=== PATIENT | female | born 1975 | race African-American/Black ===

== ENCOUNTER 2024-02-18 08:49 | Emergency (ER) | payer OTHER, SELFPAY ==
[2024-02-18] MEDS ORDERED: Losartan 25 MG TAB ONE (09:23)
[2024-02-18] MEDS ORDERED: Amlodipine 5 MG TAB ONE (09:24)
[2024-02-18 10:09] LABS: Bilirubin Neg (Negative); Blood, Urine 10 (Negative); Clarity Clear (Clear); Glucose, Urine (Dipstick) Normal (Negative); Ketone, Urine Negative (Negative); Leukocyte Negative (Negative); Nitrite Negative (Negative); Protein, Urine (Dipstick) Negative (Neg-Trace); Urobilinogen Normal mg/dL (Less than 2)
[2024-02-18 10:20] LABS: Bacteria/HPF Rare-Few HPF (None Seen); CAUTI Indications for Culture Dysuria,urgency,freq; Squamous Epithelial 21-50 HPF (0-3)
[2024-02-18 10:21] LABS: Urine Culture Reflex No No
[2024-02-18] MEDS ORDERED: Sterile Water 10 ML ONE (11:13)
[2024-02-18] MEDS ORDERED: cefTRIAXone (ROCEPHIN) 500 MG VIAL ONE (11:13)
[2024-02-18] MEDS ORDERED: Doxycycline 100 MG CAP PO SCH (11:30)
[2024-02-18] MEDS ORDERED: Fluconazole 100 MG TAB PO SCH (11:30)
[2024-02-18 18:02] LABS: Chlam.trachomatis by PCR,Urine Not Detected (NotDetected); GC N.gonorrhoeae PCR,UrineVOID Not Detected (NotDetected)
== END 2024-02-18 11:52 | disposition home or self-care (01) ==
LOC: CSHERS 08:49
DX: N89.8 Other specified noninflammatory disorders of vagina (principal); I10 Essential (primary) hypertension; F17.210 Nicotine dependence, cigarettes, uncomplicated
CPT/HCPCS: 81001; 87480; 87491; 87510; 87591; 87660; 96372; 99283; J0696

== ENCOUNTER 2024-10-15 13:55 | Emergency (ER) | payer OTHER ==
[~2024-10-15 13:55] MED LIST: Iopamidol 300 61% 100 ML VIAL FS ONE
[2024-10-15] MEDS ORDERED: Ketorolac Tromethamine 30 MG (1 mL) VIAL ONE (14:39)
[2024-10-15 14:42] LABS: #Basophils 0.06 10x3/uL (0.0-0.2); #Eosinophils 0.25 10x3/uL (0.0-0.5); #Monocytes 1.01 10x3/uL (0.0-1.1); #Neutrophils 12.10 10x3/uL (1.5-8.4); %Basophils 0.4 % (0.0-2.0); %Eosinophils 1.5 % (0.0-6.0); %Lymphocytes 18.8 % (18.0-47.0); %Monocytes 6.1 % (0.0-10.0); %Neutrophils 72.7 % (40.0-75.0); Hematocrit 39.6 % (34.9-44.5); Hemoglobin 13.0 g/dL (12.0-15.5); Mean Corpuscular Hemoglobin 25.0 pg (27.0-33.0); Mean Corpuscular Volume 76.2 fL (81.6-98.3); Platelet Count 281 10x3/uL (150-450); Red Blood Cell (RBC) Count 5.20 10x6/uL (3.90-5.03); White Blood Cell (WBC) Count 16.63 10x3/uL (3.5-10.5)
[2024-10-15 15:03] LABS: BHCG - Serum Negative (NEGATIVE); Pregs Control Background? CLEAR/WHITE (CLR/WHITE); Pregs Control Bar Appear? YES (CONTROL BAR)
[2024-10-15 15:10] LABS: ALT (SGPT) 13 U/L (Less than 34); AST (SGOT) 25 U/L (11-34); Albumin 4.0 g/dL (3.1-4.5); Alkaline Phosphatase 81 U/L (40-110); Anion Gap 13 mmol/L (10-20); BUN (Urea Nitrogen) 11 mg/dL (7.0-18.7); Bilirubin, Total 0.3 mg/dL (0.3-1.2); Calc. Creatinine Clearance 0 mL/min (70-130); Calcium 9.4 mg/dL (7.8-10.44); Carbon Dioxide 26 mmol/L (22-29); Chloride 106 mmol/L (98-107); Globulin 4.2 g/dL (2.4-3.5); Glucose 88 mg/dL (70-105); Potassium 3.8 mmol/L (3.5-5.1); Sodium 141 mmol/L (136-145)
[2024-10-15] MEDS ORDERED: Dexamethasone 10 MG/ML VIAL ONE (15:34)
== END 2024-10-15 17:30 | disposition home or self-care (01) ==
LOC: CSHERS 13:55
DX: R22.1 Localized swelling, mass and lump, neck (principal); I10 Essential (primary) hypertension; Z86.711 Personal history of pulmonary embolism; F17.210 Nicotine dependence, cigarettes, uncomplicated
CPT/HCPCS: 36415; 70491; 80053; 83605; 84703; 85025; 96365; 96375; J0295; J1100; J1885; J2270; Q9967